=== PATIENT | male | born 2000 | race Asian ===

== ENCOUNTER 2020-02-24 10:43 | Emergency (ER) | payer OTHER ==
[~2020-02-24] VITALS: Ht 160 cm; Wt 59.1 kg
[2020-02-24 11:45] VITALS: BP 114/62
== END 2020-02-24 11:45 | disposition home or self-care (01) ==
LOC: EMS 10:52
DX: Z20.828 Contact with and (suspected) exposure to other viral communicable diseases (principal)
CPT/HCPCS: 87426